=== PATIENT | female | born 1985 | race American Indian/Alaskan Native ===

== ENCOUNTER 2016-08-06 12:51 | Emergency (ER) | payer MEDICAID, OTHER ==
[2016-08-06] MEDS ORDERED: Sodium Chloride 0.9% 1,000 ML IV ONE (13:35)
[2016-08-06 13:49] LABS: RBC URINE < 1 /hpf (0-3); URINE BACTERIA FEW (<OCC); URINE BILIRUBIN NEGATIVE (NEGATIVE); URINE BLOOD NEGATIVE (NEGATIVE); URINE COLOR Yellow (YELLOW); URINE GLUCOSE (UA) NORMAL (Normal); URINE KETONE NEGATIVE (NEGATIVE); URINE LEUKOCYTE ESTERASE NEG Leu/uL (Negative); URINE PROTEIN NEGATIVE (NEGATIVE); URINE UROBILINOGEN NORMAL mg/dL (0.2-1.0); WBC URINE 2 /hpf (0-5)
[2016-08-06] MEDS ORDERED: Sodium Chloride 0.9% 1,000 ML ONE (14:14)
--- NOTE | 2016-08-06 14:33 | C.PDOC ---
History Of Present Illness 30 year old patient presents to the emergency department complaining of achy lower pelvic pain that is worse today. Patient also complains of nausea and vomiting in morning/evening that is consistent with her prior . Patient notes she has an irregular menstrual cycle and last had it 05/2016. Patient is unsure if she is . Patient denies vaginal bleeding, vaginal discharge, back pain, diarrhea, urinary symptoms, fever, or chills. Time Seen by Provider: 08/06/16 13:31 Chief Complaint (Nursing): GI Problem History Per: Patient History/Exam Limitations: no limitations Onset/Duration Of Symptoms: Worse Since (today) Current Symptoms Are (Timing): Still Present Context: Other Severity: Mild Pain Scale Rating Of: 3 Location Of Pain/Discomfort: Other (lower pelvic pain) Quality Of Discomfort: Aching, "Pain" Associated Symptoms: Nausea, Vomiting Exacerbating Factors: None Alleviating Factors: None Last Bowel Movement: Today Recent travel outside of the [place]: No Abnormal Vaginal Bleeding: No Last Menstral Period: irregular; 05/2016 Past Medical History Reviewed: Historical Data, Nursing Documentation, Vital Signs Family History: States: Unknown Family Hx - Social History Hx Alcohol Use: No Hx Substance Use: No - Immunization History Hx Tetanus Toxoid Vaccination: No Hx Influenza Vaccination: No Hx Pneumococcal Vaccination: No Review Of Systems Except As Marked, All Systems Reviewed And Found Negative. Constitutional: Negative for: Fever, Chills Gastrointestinal: Positive for: Nausea, Vomiting. Negative for: Diarrhea Genitourinary: Positive for: Pelvic Pain. Negative for: Dysuria, Hematuria, Vaginal Discharge, Vaginal Bleeding Musculoskeletal: Negative for: Back Pain Physical Exam - Physical Exam Appears: Non-toxic, No Acute Distress Skin: Warm, Dry Head: Atraumatic, Normacephalic Oral Mucosa: Moist Neck: Normal ROM, Supple Chest: Symmetrical Cardiovascular: Rhythm Regular Respiratory: Normal Breath Sounds, No Rales, No Rhonchi, No Wheezing Gastrointestinal/Abdominal: Soft, No Tenderness, No Guarding, No Rebound, No Other (questionable gravid lower abdomen) Back: Normal Inspection Extremity: Normal ROM Neurological/Psych: Oriented x3, Normal Speech, Normal Cognition Gait: Steady ED Course And Treatment - Laboratory Results Result Diagrams: 08/06/16 14:25 08/06/16 14:25 Lab Interpretation: Normal (B+. Quant HCG 120,350) - CT Scan/US first trimester US Other Rad Studies (CT/US): Read By Radiologist (Kina Fernandez MD), Radiology Report Reviewed CT/US Interpretation: Impression: Live single intrauterine with estimated gestational age 9 weeks 4 days. heart rate 144.4 bpm. Advise an anomaly screen at 16-18 weeks gestational age. Progress Note: Plan: Labs, Pepcid, Zofran, IV fluids, first trimester US Reevaluation Time: 15:22 Reassessment Condition: Improved Medical Decision Making Medical Decision Making: hyperemesis gravidarum, h/o same in prior preg normal IUP, no ectopic. opt f/u. Disposition Doctor Will See Patient In The: Office Counseled Patient/Family Regarding: Studies Performed, Diagnosis - Disposition Disposition: HOME/ ROUTINE Disposition Time: 15:22 Condition: GOOD - Clinical Impression Clinical Impression: Vomiting affecting - Scribe Statement The provider has reviewed the documentation as recorded by the Ravinderibtrevor [place] Provider Attestation: All medical record entries made by the Ravinderibtrevor were at my direction and personally dictated by me. I have reviewed the chart and agree that the record accurately reflects my personal performance of the history, physical exam, medical decision making, and the department course for this patient. I have also personally directed, reviewed, and agree with the discharge instructions and disposition.
[2016-08-06 14:36] LABS: BASO % 0.4 % (0.0-2.0); EOS % 0.6 % (0.0-4.0); HEMATOCRIT 37.6 % (34.0-47.0); LYMPH # 2.2 K/uL (1.0-4.3); LYMPH % 25.1 % (20.0-40.0); MEAN CELL VOLUME 84.1 fL (81.0-99.0); MEAN CORPUSCULAR HEMOGLOBIN 27.5 pg (27.0-31.0); MEAN CORPUSCULAR HGB CONC 32.7 g/dL (33.0-37.0); MEAN PLATELET VOLUME 9.1 fL (7.2-11.7); MONO # 0.5 K/uL (0.0-0.8); MONO % 5.7 % (0.0-10.0); NRBC % 0.1 % (0.0-2.0); RED CELL DISTRIBUTION WIDTH 13.6 % (11.5-14.5); WHITE BLOOD COUNT 8.8 K/uL (4.8-10.8)
[2016-08-06 14:43] LABS: CHLORIDE 98 mmol/L (98-107); SODIUM 134 mmol/L (132-148)
[2016-08-06 14:46] LABS: ALB/GLOB RATIO 1.4 (1.0-2.1); ALKALINE PHOSPHATASE 28 U/L (38-126); ALT/SGPT 15 U/L (9-52); AST/SGOT 19 U/L (14-36); BILIRUBIN,TOTAL 0.5 mg/dL (0.2-1.3); BLOOD UREA NITROGEN 11 mg/dL (7-17); CALCIUM 8.4 mg/dl (8.6-10.4); CARBON DIOXIDE 26 mmol/L (22-30); GFR AFRICAN-AMERICAN > 60; GLUCOSE,RANDOM 74 mg/dL (65-105); TOTAL PROTEIN 6.8 g/dL (6.3-8.3)
--- NOTE | 2016-08-06 15:03 | US ---
Indication: Early , pelvic pain Comparison: None available Technique: Real-time transabdominal pelvic ultrasound was performed. Findings: The uterus measures approximately 14.1 x 5.4 x 8.6 cm. Anteverted. Cervix length measures approximately 3.6 cm. There is a single intrauterine fetus present. 3 mm yolk sac. The gestational sac measures 4.2 cm and is compatible with a gestational age of 9 weeks 4 days. The crown-rump length measures 2.8 cm and is compatible with a gestational age of 9 weeks 4 days. There is heart motion which measured 144.4 BPM. The right ovary measures 2.9 x 2.6 x 3.4 cm. The left ovary measures 2.9 x 1.4 x 3.0 cm. Blood flow was demonstrated to both ovaries. Impression: Live single intrauterine with estimated gestational age 9 weeks 4 days. heart rate 144.4 bpm. Advise an anomaly screen at 16-18 weeks gestational age.
[2016-08-06 15:53] VITALS: BP 100/64; PULSE 81; RESP 20; TEMP 98.2; O2SAT 100
== END 2016-08-06 15:55 | disposition home or self-care (01) ==
LOC: C.ER 12:51
DX: O21.8 Other vomiting complicating pregnancy (principal); Z3A.09 9 weeks gestation of pregnancy
CPT/HCPCS: 76801; 80053; 81001; 83690; 84702; 84703; 85025; 86850; 86900; 96361; 96374; 96375; 99284; J2405; J7040